=== PATIENT | male | born 1940 | race Caucasian/White ===

== ENCOUNTER 2020-07-02 10:23 | Outpatient (CLI) | payer MEDICARE ==
--- NOTE | 2020-07-02 10:41 | RAD ---
EXAM: 4 views of the right knee HISTORY: Burning sensation in the knee after squatting COMPARISON: None FINDINGS: No knee effusion is seen. There is no evidence of acute fracture or dislocation. No signifi cant degenerative changes are seen. No soft tissue swelling is present. IMPRESSION: No evidence of acute osseous abnormality.
== END 2020-07-02 10:24 | disposition home or self-care (01) ==
LOC: NAV RAD 10:23
PROVIDERS: ATTEND Family Medicine
DX: M25.561 Pain in right knee (principal)